=== PATIENT | female | born 1950 | race Caucasian/White ===

== ENCOUNTER → 2017-07-23 | Outpatient (CLI) | payer OTHER | LOC: HYPER 07-18 06:38 | DX: L89.150 Pressure ulcer of sacral region, unstageable (principal); S80.821A Blister (nonthermal), right lower leg, initial encounter; L84 Corns and callosities; I87.2 Venous insufficiency (chronic) (peripheral); G60.3 Idiopathic progressive neuropathy; L97.811 Non-pressure chronic ulcer of other part of right lower leg limited to breakdown of skin; M19.90 Unspecified osteoarthritis, unspecified site; G62.9 Polyneuropathy, unspecified; F17.200 Nicotine dependence, unspecified, uncomplicated; Z90.710 Acquired absence of both cervix and uterus; X58.XXXA Exposure to other specified factors, initial encounter; Y93.89 Activity, other specified; Y92.89 Other specified places as the place of occurrence of the external cause; Y99.8 Other external cause status ==

== ENCOUNTER → 2017-08-08 | Outpatient (CLI) | payer OTHER | LOC: HYPER 06:50 | DX: I87.2 Venous insufficiency (chronic) (peripheral) (principal); L97.811 Non-pressure chronic ulcer of other part of right lower leg limited to breakdown of skin; L89.150 Pressure ulcer of sacral region, unstageable; R60.0 Localized edema; R21 Rash and other nonspecific skin eruption; E43 Unspecified severe protein-calorie malnutrition; G60.3 Idiopathic progressive neuropathy; M19.90 Unspecified osteoarthritis, unspecified site; F17.210 Nicotine dependence, cigarettes, uncomplicated ==

== ENCOUNTER → 2018-09-29 | Outpatient (CLI) | payer OTHER | LOC: HYPER 07:06 | DX: L89.150 Pressure ulcer of sacral region, unstageable (principal); L97.821 Non-pressure chronic ulcer of other part of left lower leg limited to breakdown of skin; L97.811 Non-pressure chronic ulcer of other part of right lower leg limited to breakdown of skin; L84 Corns and callosities; E43 Unspecified severe protein-calorie malnutrition; I87.2 Venous insufficiency (chronic) (peripheral); G60.3 Idiopathic progressive neuropathy; R60.0 Localized edema; K21.9 Gastro-esophageal reflux disease without esophagitis; M19.90 Unspecified osteoarthritis, unspecified site; F17.200 Nicotine dependence, unspecified, uncomplicated ==

== ENCOUNTER → 2018-10-13 | Outpatient (CLI) | payer OTHER | LOC: HYPER 07:00 | DX: L89.153 Pressure ulcer of sacral region, stage 3 (principal); L97.821 Non-pressure chronic ulcer of other part of left lower leg limited to breakdown of skin; L97.811 Non-pressure chronic ulcer of other part of right lower leg limited to breakdown of skin; L84 Corns and callosities; I87.2 Venous insufficiency (chronic) (peripheral); R60.0 Localized edema; R21 Rash and other nonspecific skin eruption; E43 Unspecified severe protein-calorie malnutrition; G60.3 Idiopathic progressive neuropathy; K21.9 Gastro-esophageal reflux disease without esophagitis; M19.90 Unspecified osteoarthritis, unspecified site; F17.200 Nicotine dependence, unspecified, uncomplicated ==

== ENCOUNTER → 2018-11-24 | Outpatient (CLI) | payer OTHER | LOC: HYPER 06:40 | DX: L89.153 Pressure ulcer of sacral region, stage 3 (principal); L97.811 Non-pressure chronic ulcer of other part of right lower leg limited to breakdown of skin; L84 Corns and callosities; I87.2 Venous insufficiency (chronic) (peripheral); E43 Unspecified severe protein-calorie malnutrition; G60.3 Idiopathic progressive neuropathy; G62.9 Polyneuropathy, unspecified; R60.0 Localized edema; R21 Rash and other nonspecific skin eruption; K21.9 Gastro-esophageal reflux disease without esophagitis; M19.90 Unspecified osteoarthritis, unspecified site; F17.200 Nicotine dependence, unspecified, uncomplicated ==